=== PATIENT | female | born 1970 | race Caucasian/White ===

== ENCOUNTER 2024-09-23 17:50 | Emergency (ER) | payer BC, SELFPAY ==
[2024-09-23 18:00] VITALS: BP 155/102
--- NOTE | 2024-09-23 18:00 | ED.GENMED ---
ED Provider Triage
-
Patient seen by provider in Triage?: Seen in Triage
Attestation: A medical screening examination has been initiated by a qualified medical provider. Based on the assessment performed at this time, it has been determined that an emergent medical condition may exist and the patient has been informed
that further medical evaluation and possible additional diagnostic testing may be needed.
HPI: 53-year-old female presenting to the ER for groin pain, bilateral leg weakness and feeling off balance. This been ongoing since June but reportedly worsening throughout this time. Patient had CT imaging ordered which was done through
[facility] with the CT scan showing left greater than right moderate hip osteoarthritis. There is also degenerative changes of the spine with grade 1 anterolisthesis at L4 on L5. There is also nonspecific mildly distended small bowel.
Patient without GI symptoms presently. Labs ordered. Patient is otherwise stable. Has an appointment scheduled with [facility] this coming
GENERAL: Alert , in no apparent distress
EYE: No visual abnormalities.
NECK: Trachea midline
ENT: No visible abnormalities.
LUNGS: No acute respiratory distress
NEUROLOGICAL: Alert and oriented
SKIN: Skin intact. No visible changes.
MUSCULOSKELETAL: Moving extremities normally
PSYCH: Normal and appropriate interaction.
This is a medical evaluation conducted in person to initiate diagnostic evaluation and provide initial therapeutics. Please see further documentation by the treating clinician.
History of Present Illness
General
Chief Complaint: Weakness
History of Present Illness
History of Present Illness:
.
Phy Exam
Physical Exam
Physical Exam:
.
Course
Orders/Labs/Results
Orders:
Orders
09/23/24 18:12
Basic Metabolic Panel Urgent
CPK [Creatine Phosphokinase] Urgent
Complete Blood Count/With Diff Urgent
Abnormal Lab Results
09/23/24
18:12
MCHC 32.9 L g/dL
(33.0-37.0)
MPV 10.5 H fL
(7.4-10.4)
BUN 26 H mg/dl
(7-17)
Glucose 115 H mg/dl
(70-99)
09/23/24 18:12
09/23/24 18:12
Vital Signs
Initial and Last Documented VS:
Initial Vital Signs
Temp Pulse Resp BP Pulse Ox
98.3 F 93 20 155/102 97
09/23/24 18:00 09/23/24 18:00 09/23/24 18:00 09/23/24 18:00 09/23/24 18:00
Last Documented Vital Signs
Temp Pulse Resp BP Pulse Ox
98.3 F 93 20 155/102 97
09/23/24 18:00 09/23/24 18:00 09/23/24 18:00 09/23/24 18:00 09/23/24 18:00
*Critical Care Note
Total Time (30-74mins, 75-104mins- exclusive of procedures): Not Applicable
ED Attending Note
-
Portions of this chart may have been created with voice recognition software.� Occasional wrong word or��sound alike� substitutions may have occurred due to the inherent limitations of voice recognition software.
Discharge Plan
Departure
Patient Disposition: Left Without Treatment
Interventions
Interventions:
*Nursing Disposition Last Done: 09/23/24 18:40
Discharge Date and Time
Print Language: NORWEGIAN
[2024-09-23 18:27] LABS: % Basophils 0.7 % (0-2); % Eosinophils 4.4 % (0-6); % Immature Granulocytes 0.4 % (0-0.5); % Lymphocytes 26.1 % (20.5-51.1); % Monocytes 6.6 % (1.7-9.3); % Neutrophils 61.8 % (42.2-75.2); Absolute Basophils 0.1 10^3/uL (0-0.2); Absolute Eosinophils 0.4 10^3/uL (0-0.7); Absolute Lymphocytes 2.5 10^3/uL (1.2-3.4); Absolute Monocytes 0.6 10^3/uL (0.1-0.6); Hematocrit 39.2 % (37.0-47.0); Hemoglobin 12.9 g/dL (12.0-16.0); Mean Corp Hgb Conc. 32.9 g/dL (33.0-37.0); Mean Corpuscular Hgb 29.8 pg (27.0-31.0); Mean Corpuscular Volume 90.5 fL (81.0-99.0); Mean Platelet Volume 10.5 fL (7.4-10.4); Nucleated Red Blood Cells % 0 %; Platelet Count 368 10^3/uL (130-400); Red Blood Cell Count 4.33 10^6/uL (4.20-5.40); Red Cell Dist. Width 12.4 % (11.5-14.5); White Blood Cell Count 9.7 10^3/uL (4.8-10.8)
[2024-09-23 18:38] LABS: Blood Urea Nitrogen 26 mg/dl (7-17); Calcium 9.7 mg/dl (8.4-10.2); Carbon Dioxide 27 mmol/L (22-30); Chloride 103 mmol/L (98-107); Creatine Phosphokinase 59 U/L (30-135); Glucose 115 mg/dl (70-99); Potassium 4.6 mmol/L (3.5-5.1); Sodium 138 mmol/L (135-145); eGFR > 60.00
== END 2024-09-23 18:40 | disposition left against medical advice (07) ==
LOC: EMR 17:50
PROVIDERS: EMERGENCY PHYSICIAN Physician Assistant Medical
DX: R53.1 Weakness (principal); R10.30 Lower abdominal pain, unspecified; Z53.29 Procedure and treatment not carried out because of patient's decision for other reasons
CPT/HCPCS: 99283; 80048; 82550; 85025